=== PATIENT | female | born 1970 | race Caucasian/White ===

== ENCOUNTER → 2018-02-28 | Emergency (ER) | payer MEDICAID, OTHER ==
[~2018-02-28] VITALS: Ht 152.4 cm; Wt 45.0 kg
[~2018-02-28] MED LIST: HYDR-3965 PO; NAPR220C15 PO
[2018-02-28 18:21] VITALS: BP 146/94
[2018-02-28 18:26] LABS: BASOPHILS % (AUTO) 0.4 % (0-1); EOSINOPHILS # (AUTO) 0.1 X10'3 (0-0.9); EOSINOPHILS % (AUTO) 1.3 % (0-6); HEMATOCRIT 40.4 % (35.0-45.0); HEMOGLOBIN 13.4 g/dl (12.0-16.0); LYMPHOCYTES # (AUTO) 1.7 X10'3 (1.1-4.8); LYMPHOCYTES % (AUTO) 19.5 % (21-51); MEAN CORPUSCULAR HEMOGLOBIN 29.2 PG (27.0-31.0); MEAN CORPUSCULAR HGB CONC 33.1 % (33.0-36.5); MEAN CORPUSCULAR VOLUME 88.3 FL (78-98); MEAN PLATELET VOLUME 7.4 FL (7.4-10.4); MONOCYTES # (AUTO) 0.6 X10'3 (0-0.9); MONOCYTES % (AUTO) 6.8 % (2-12); NEUTROPHILS # (AUTO) 6.2 X10'3 (1.8-7.7); PLATELET COUNT 267 X10'3 (140-440); RED BLOOD COUNT 4.58 X10'6 (4.20-5.60); RED CELL DISTRIBUTION WIDTH 13.4 % (11.5-14.5); WHITE BLOOD COUNT 8.6 X10'3 (4.5-11.0)
[2018-02-28 18:41] LABS: ALANINE AMINOTRANSFERASE 26 U/L (12-78); ALBUMIN/GLOBULIN RATIO 1.2 (1.1-1.5); ALKALINE PHOSPHATASE 59 IU/L (46-116); ANION GAP 10 (8-16); ASPARTATE AMINO TRANSFERASE 16 U/L (10-37); BILIRUBIN,TOTAL 0.2 MG/DL (0.1-1.0); BLOOD UREA NITROGEN 16 MG/DL (7-18); BUN/CREATININE RATIO 26.2 (6.6-38.0); CALCIUM 8.8 MG/DL (8.5-10.1); CHLORIDE 103 MMOL/L (99-107); CREATININE 0.61 MG/DL (0.40-0.90); GLUCOSE 90 MG/DL (70-104); POTASSIUM 3.8 MMOL/L (3.5-5.1); SODIUM 141 MMOL/L (135-145); TOTAL CARBON DIOXIDE 28.1 MMOL/L (24-32); TOTAL PROTEIN 7.4 G/DL (6.4-8.2); eGFR > 90 ML/MIN
[2018-02-28 18:49] LABS: ETHANOL < 0.010 GM/DL (0.0-0.010)
[2018-02-28 19:03] LABS: CLARITY,URINE SLIGHTLY CLOUDY (Clear); COLOR,URINE YELLOW (Yellow); GLUCOSE, URINE NEGATIVE (Neg); KETONES,URINE TRACE mg/dl (Neg); LEUKOCYTE ESTERASE ,URINE NEGATIVE (Neg); NITRITES, URINE NEGATIVE (Neg); OCCULT BLOOD,URINE NEGATIVE (Neg); PH,URINE 5.5 (4.8-8.0); PROTEIN,URINE NEGATIVE (Neg); UROBILINOGEN,URINE 0.2 E.U/dL (0.2-1.0)
[2018-02-28 19:08] LABS: UA COLLECTION TYPE CLN CATCH MIDSTREAM
[2018-02-28 19:10] LABS: WBC,URINE 0-4 /HPF (0-4)
[2018-02-28 19:11] LABS: BACTERIA,URINE FEW /HPF (Neg); MUCUS STRANDS MANY /LPF (Neg); RBC,URINE NONE SEEN /HPF (0-2); SQUAMOUS EPITHELIAL CELL,UR MANY /LPF (FEW); YEAST FEW /HPF (NEGATIVE)
[2018-02-28 19:16] LABS: URINE AMPHETAMINE SCREEN POSITIVE (Neg); URINE BARBITUATE SCREEN NEGATIVE (Neg); URINE BENZODIAZEPINES SCREEN NEGATIVE (Neg); URINE CANNABINOID SCREEN NEGATIVE (Neg); URINE COCAINE SCREEN NEGATIVE (Neg); URINE METHADONE SCREEN NEGATIVE (Neg); URINE OPIATE SCREEN NEGATIVE (Neg); URINE PHENCYCLIDINE SCREEN NEGATIVE (Neg)
== END | disposition home or self-care (01) ==
LOC: ER 17:28
DX: F32.9 Major depressive disorder, single episode, unspecified (principal); Z79.899 Other long term (current) drug therapy
CPT/HCPCS: 36415; 80053; 80305; 80320; 81001; 84443; 85025; 99284

== ENCOUNTER 2022-04-13 09:03 | Emergency (ER) | payer MEDICAID ==
[~2022-04-13] VITALS: Ht 153.7 cm; Wt 52.3 kg
[2022-04-13 09:36] VITALS: BP 128/82
[2022-04-13] MEDS ORDERED: ibuprofen 200mg tablet PO ONE (12:05)
[2022-04-13] MEDS ORDERED: ACET-1059 PO (12:54)
== END 2022-04-13 13:04 | disposition home or self-care (01) ==
LOC: ER 09:04
DX: M54.6 Pain in thoracic spine (principal); F17.200 Nicotine dependence, unspecified, uncomplicated; Z79.899 Other long term (current) drug therapy
CPT/HCPCS: 72070; 99283

== ENCOUNTER 2023-03-29 09:22 | Emergency (ER) | payer MEDICAID ==
[~2023-03-29] VITALS: Ht 152.4 cm; Wt 51.7 kg
[2023-03-29 09:35] VITALS: BP 135/86; PULSE 77; RESP 16; O2SAT 100
[2023-03-29] MEDS ORDERED: TETanus/Pertussis (Acell)/Diphther VAC/PF (Tdap-Adult) 0.5ml syringe IMVAC ONE (10:45)
[2023-03-29] MEDS ORDERED: CEPH-585 PO (10:47)
[2023-03-29] MEDS ORDERED: ketorolac tromethamine 15mg/ml inj. IM ONE (11:15)
--- NOTE | 2023-03-29 11:37 | NUR ---
52 year old female here for left ankle pain, pt hit her ankle while trimming bushes, pt states it was bianca and unknown when she had her last tetanus. Pt was given a tdap vaccine prescribed abx and given toradol for contusion pain.
[2023-03-29 11:39] VITALS: TEMP 99.5
--- NOTE | 2023-03-29 15:57 | NUR ---
PT SEEN FOR LACERATION PT DIAGNOSED WITH CONTUSION AND GIVEN A TETANUS LACERATION WAS MINOR FROM HITTING ANKLE. NO STERRI STRIP OR SUTURES NEEDED AT THIS TIME
== END 2023-03-29 18:21 | disposition home or self-care (01) ==
LOC: ER 09:22
DX: S90.512A Abrasion, left ankle, initial encounter (principal); X58.XXXA Exposure to other specified factors, initial encounter; Y93.89 Activity, other specified; Y92.89 Other specified places as the place of occurrence of the external cause; Y99.8 Other external cause status
CPT/HCPCS: 90471; 90715; 96372; 99284; J1885

== ENCOUNTER 2025-02-08 00:26 | Emergency (ER) | payer MEDICAID ==
[~2025-02-08] VITALS: Ht 154.9 cm; Wt 54.5 kg
--- NOTE | 2025-02-08 01:03 | Physician Documentation ---
History of Present Illness ~ Chief Complaint: Abdominal Pain Stated Complaint: FLANK PAIN Time Seen by MD: 01:03 Primary Medical Doctor: None HPI Patient presents to the emergency room with right lower quadrant pain of sudden onset this evening. No prior incidents. Denies history of kidney stone. That has had nothing for the pain prior to arrival. Endorses nausea and vomiting. Medication Reconciliation Allergies: Coded Allergies: No Known Allergies (Unverified , 02/08/25) Scheduled PRN Hydrocodone Bit/Acetaminophen 5/325 MG ([place] 5/325 MG), 1-2 TAB PO Q4-6 hours PRN, (Reported) Naproxen Sodium* (Aleve*), 440 MG PO BID PRN, (Reported) Past Medical History Past Medical History: No Pertinent History Past Surgical History: noncontributory Alcohol Use: None Drug Use: none Lives In: Home Review of Systems ROS All review of systems negative except as per HPI Physical Exam Vital Signs: Temperature: 97.8, Source: Oral, Heart Rate: 65, Respiratory Rate: 18, BP: 159/78, Pulse Oximetry: 9, Weight: 54.550 Physical Exam General: Patient is awake, alert, oriented x4 in moderate distress. Head: Normocephalic and atraumatic. Eyes: Conjunctival normal. EOMI. PERRL. ENT: Mucous membranes moist. Neck: Supple, trachea is midline. Chest: Clear to auscultation bilaterally without rales, rhonchi, or wheezes. There is no accessory muscle use or retractions. Cardiac: RRR without murmurs, gallops, or rubs. Abd: Soft, nondistended, positive tenderness to palpation to right inguinal area. Back: Right-sided CVA tenderness. Progress Results/Orders Results/Orders Orders - HARLAN BANUELOS MD Ct Abdomen Pelvis (02/08/25 04:45) Drug Screen, Urine (02/08/25 05:23) Completed Orders - HARLAN BANUELOS MD Ketorolac Trometh 15mg/Ml Vial (Toradol (02/08/25 01:10) Acetaminophen 1,000mg/100ml Iv (Ofirmev (02/08/25 01:10) Morphine 4mg/Ml Inj. (Morphine Inj.) (02/08/25 01:10) Ondansetron Inj. (Zofran 4mg/2ml Vial) (02/08/25 01:10) Cbc/Diff (02/08/25 01:06) Hcg, Ur Ql (02/08/25 01:06) BMP (02/08/25 01:06) Ua W/Microscopic, Cult If Ind (02/08/25 02:45) Ct Abdomen Pelvis (02/08/25 04:45) Medications Received in ER Medications (Trade) Dose Ordered Sig/Crystal Route PRN Reason Start Time Stop Time Status Last Admin Dose Admin (Toradol injection) 15 mg ONCE ONCE IV 02/08/25 01:10 02/08/25 01:13 DC 02/08/25 01:30 15 MG Acetaminophen 100 ml @ 400 mls/hr ONCE ONCE IV 02/08/25 01:10 02/08/25 01:24 DC 02/08/25 01:34 400 MLS/HR (morphine inj.) 4 mg ONCE ONCE IV 02/08/25 01:10 02/08/25 01:11 DC 02/08/25 01:31 4 MG (Zofran 4mg/2ml vial) 8 mg ONCE ONCE IV 02/08/25 01:10 02/08/25 01:11 DC 02/08/25 01:30 8 MG Vital Signs 02/08/25 02/08/25 02/08/25 02/08/25 00:33 01:04 01:30 01:31 Temp 97.8 Pulse 65 Resp 18 18 18 16 B/P (MAP) 159/78 Pulse Ox 9 02/08/25 05:21 Pulse 85 Resp 16 B/P (MAP) 119/71 (87) Pulse Ox 93 Laboratory Tests Test 02/08/25 01:30 02/08/25 02:45 White Blood Count 8.7 Red Blood Count 4.97 Hemoglobin 14.5 Hematocrit 42.7 Mean Corpuscular Volume 86.0 Mean Corpuscular Hemoglobin 29.1 Mean Corpuscular Hemoglobin Concent 33.9 Red Cell Distribution Width 13.7 Platelet Count 267 Mean Platelet Volume 7.2 L Neutrophils (%) (Auto) 70.1 Lymphocytes (%) (Auto) 20.2 L Monocytes (%) (Auto) 7.6 Eosinophils (%) (Auto) 1.7 Basophils (%) (Auto) 0.4 Neutrophils # (Auto) 6.1 Lymphocytes # (Auto) 1.8 Monocytes # (Auto) 0.7 Eosinophils # (Auto) 0.1 Basophils # (Auto) 0.0 CBC Comment Sodium Level 141 Potassium Level 3.9 Chloride Level 105 Carbon Dioxide Level 28.0 Anion Gap 8 Blood Urea Nitrogen 22 H Creatinine 0.81 Estimated GFR/1.73 m2 73 BUN/Creatinine Ratio 27.2 H Glucose Level 117 H Calcium Level 8.8 Albumin 3.8 Chemistry Comments Urine Specimen Description Cln catch midstream Urine Color Straw Urine Clarity Clear Urine pH 7.0 Urine Specific [place] 1.015 Urine Protein Negative Urine Glucose (UA) Negative Urine Ketones Trace H Urine Occult Blood Small Urine Nitrite Negative Urine Bilirubin Negative Urine Urobilinogen 0.2 Urine Leukocyte Esterase Negative Urine RBC 3-10 Urine WBC 0-4 Urine Squamous Epithelial Cells Few Urine Bacteria None seen Urine Culture Indicated Not ind Volume Urine Centrifuged 10 ml Urine HCG, Qualitative Negative Urine Comment Medical Decision Making Findings Patient presents to the emergency room with flank pain as per HPI. Differentials include but are not limited to kidney stone aortic pathology intra-abdominal infection, referred pain therefore emergent labs and imaging indicated. Workup consistent with kidney stone. Patient's pain is controlled. No evidence of urinary tract infection or acute kidney injury. I believe she will do well on outpatient basis. Departure Disposition: HOME / SELF CARE / HOMELESS Impression: Primary Impression: Kidney stone Condition: Stable Discharge Instructions: Kidney Stones Additional Instructions: You may take ibuprofen and Tylenol for pain. I will provide additional medication should this be necessary. Return for fevers or uncontrolled pain despite pain medication Referrals: NO PRIMARY CARE PROVIDER (PCP) Prescriptions Ondansetron 8mg ODT (Ondansetron Odt) 8 Mg Tab.rapdis 1 TAB PO Q6H for nausea/vomiting for 3 Days, #12 TAB 0 Refills Prov: HARLAN BANUELOS MD 02/08/25 Hydrocodone Bit/Acetaminophen 5/325 MG ([place] 5/325 MG) 5 Mg/325 Mg Tablet 1-2 TAB PO Q4-6 hours PRN for pain, #8 TAB Prov: HARLAN BANUELOS MD 02/08/25 Education Educated: Patient Educated regarding: diagnosis, treatment, need for follow up Signature Scribe Signature: No scribe Attestation: The note accurately reflects work and decisions made by me.Harlan Banuelos MD 02/08/25 05:29 HARLAN BANUELOS MD Feb 08, 2025 01:03
[2025-02-08] MEDS: ondansetron/PF 4mg/2ml inj IV ONE (01:30)
[2025-02-08] MEDS: ketorolac trometh 15mg/ml vial 15 MG/ML ML IV ONE (01:30)
[2025-02-08] MEDS: morphine 4 MG/ML inj SYRINge IV ONE ×2 (01:31→05:40)
[2025-02-08] MEDS: acetaminophen 1,000mg/100ml IV 100 ML IV ONE (01:34)
[2025-02-08 01:43] LABS: MEAN PLATELET VOLUME 7.2 FL (7.4-10.4); RED CELL DISTRIBUTION WIDTH 13.7 % (11.5-14.5)
[2025-02-08 01:57] LABS: CREATININE 0.81 MG/DL (0.40-0.90); TOTAL CARBON DIOXIDE 28.0 MMOL/L (24-32); eCRCL 59 ML/MIN; eGFR 73 ML/MIN
[2025-02-08 03:12] LABS: URINE HCG NEGATIVE (NEG)
[2025-02-08 03:18] LABS: LEUKOCYTE ESTERASE ,URINE NEGATIVE (Neg); NITRITES, URINE NEGATIVE (Neg); OCCULT BLOOD,URINE SMALL (Neg)
[2025-02-08 03:22] LABS: UA COLLECTION TYPE CLN CATCH MIDSTREAM
[2025-02-08 03:28] LABS: SQUAMOUS EPITHELIAL CELL,UR FEW /LPF (FEW)
--- NOTE | 2025-02-08 05:23 | RADIOLOGY REPORT ---
Exam: CT CT ABDOMEN PELVIS History: falnk pain COMPARISON: None Technique: Multidetector spiral CT of the abdomen and pelvis was performed from lung bases to pubic symphysis. Intravenous contrast was administered during this examination. Portal venous imaging was obtained. Axial, coronal and sagittal multiplanar reformats were performed by the technologist on a separate workstation. Radiation Dose : 1. Abdomen/Pelvis: CTDIvol 9.4 mGy, DLP 453.1 mGy*cm. Findings: Lung Bases: No acute or significant lung base finding. Normal heart size. No pleural or pericardial effusion. Liver: The liver is normal in size. No focal lesions. Normal hepatic vascular enhancement. Gallbladder and Biliary Tree: Unremarkable Spleen: Unremarkable Pancreas: The pancreas is normal in appearance without focal lesions or abnormal enhancement. Adrenal Glands: Unremarkable Kidneys: Severe right hydroureteronephrosis. Obstructing 0.3 cm stone at the right UVJ. Bladder: Unremarkable Bowel: The stomach is grossly normal in appearance. Moderate volume colonic stool. The appendix is unremarkable. Small fat containing umbilical hernia. Small bowel and colon are normal in caliber and distribution. Ascites: Absent Lymphadenopathy: No mesenteric, retroperitoneal or periportal lymphadenopathy. Abdominal Wall and Mesentery: Unremarkable. Vasculature: The visualized abdominal aorta is normal in size and caliber. Abdominal and pelvic vessels demonstrate normal enhancement. Pelvic Organs: Unremarkable Musculoskeletal: No aggressive focal bony lesions, acute fractures or dislocation. Bilateral breast prosthesis. IMPRESSION: Severe right hydroureteronephrosis with obstructing 0.3 cm stone at the right UVJ. Radiation optimization: All CT scans at this facility use at least one of these dose optimization techniques: automated exposure control mA and/or kV adjustment per patient size (includes targeted exams where dose is matched to clinical indication) or iterative reconstruction.
[2025-02-08] MEDS ORDERED: HYDR-3965 PO (05:28)
[2025-02-08] MEDS ORDERED: ONDA-245 PO (05:28)
[2025-02-08 05:41] VITALS: BP 141/82; PULSE 99; RESP 16; TEMP 97.8; O2SAT 99
== END 2025-02-08 05:49 | disposition home or self-care (01) ==
LOC: ER 00:26
DX: N20.0 Calculus of kidney (principal)
CPT/HCPCS: 36415; 74176; 80048; 81001; 81025; 85025; 96365; 96375; 96376; 99285; J0131; J1885; J2270; J2405